=== PATIENT | female | born 1960 | race Caucasian/White ===

== ENCOUNTER → 2024-04-17 15:46 | Outpatient (REF) | payer OTHER, SELFPAY | LOC: HWRCS 15:46 | PROVIDERS: ATTENDING PHYSICIAN Internal Medicine Cardiovascular Disease; FAMILY PHYSICIAN Family Medicine | DX: I34.1 Nonrheumatic mitral (valve) prolapse (principal); I34.0 Nonrheumatic mitral (valve) insufficiency | CPT/HCPCS: 93306 ==

== ENCOUNTER → 2024-04-18 13:34 | Outpatient (REF) | payer OTHER, SELFPAY | LOC: HWWDC 13:34 | PROVIDERS: ATTENDING PHYSICIAN Obstetrics & Gynecology; FAMILY PHYSICIAN Family Medicine | DX: Z12.31 Encounter for screening mammogram for malignant neoplasm of breast (principal) | CPT/HCPCS: 77063; 77067 ==

== ENCOUNTER 2024-05-22 17:28 | Outpatient (RCR) | payer OTHER, SELFPAY | END 2024-05-22 23:59 | disposition home or self-care (01) | LOC: RPT 17:28 | PROVIDERS: ATTENDING PHYSICIAN Physician Assistant Surgical; FAMILY PHYSICIAN Family Medicine | DX: M25.511 Pain in right shoulder (principal); M54.2 Cervicalgia | CPT/HCPCS: 97110; 97161 ==

== ENCOUNTER 2025-07-30 10:57 | Emergency (ER) | payer OTHER, SELFPAY ==
[2025-07-30 11:04] VITALS: BP 159/81
[2025-07-30 11:35] LABS: Hematocrit 43.3 % (37.0-47.0); Hemoglobin 14.8 g/dL (12.0-16.0); Mean Corp Hgb Conc. 34.2 g/dL (33.0-37.0); Mean Corpuscular Volume 84.7 fL (81.0-99.0); Nucleated Red Blood Cells % 0 %; Platelet Count 205 10^3/uL (130-400); Red Cell Dist. Width 13.1 % (11.5-14.5)
[2025-07-30 11:53] LABS: ALT (SGPT) 17 U/L (0-35); AST (SGOT) 22 U/L (14-36); Albumin 4.5 g/dl (3.5-5.0); Alkaline Phosphatase 79 U/L (38-126); Blood Urea Nitrogen 15 mg/dl (7-17); Calcium 10.1 mg/dl (8.4-10.2); Carbon Dioxide 30 mmol/L (22-30); Chloride 104 mmol/L (98-107); Glucose 80 mg/dl (70-99); Potassium 3.8 mmol/L (3.5-5.1); Sodium 138 mmol/L (135-145); Total Protein 7.1 g/dl (6.3-8.2); eGFR > 60.00
[2025-07-30 12:32] VITALS: BP 134/67
--- NOTE | 2025-07-30 12:36 | EDRN ---
Pt added that she spoke to dry goods clerk Dr. Lance giles suggested pt get an MRI.
--- NOTE | 2025-07-30 12:43 | EDRN ---
Dr. Sanchez in room w /pt at this time.
--- NOTE | 2025-07-30 13:07 | ED.GENMED ---
History of Present Illness
General
Chief Complaint: Blood Pressure Problem
Source: patient
Exam Limitations: none
Time Seen by Provider: 07/30/25 12:40
History of Present Illness
History of Present Illness:
See MDM
Past History
Past History
ED Past Medical History: HTN, Hypothyroidism and Other (MVR)
ED Past Surgical History: Orthopedic
Social History
Tobacco: Non-smoker
Alcohol: None
Drug: None
Personal:
Living: with family
Phy Exam
Physical Exam
Physical Exam:
See MDM
Course
Orders/Labs/Results
Orders:
Orders
07/30/25 11:03
EKG [Electrocardiogram (*1)] Urgent
Reason for Study: Vertigo / Dizzy
07/30/25 11:04
EKG- Treatment ONCE
07/30/25 11:22
CBC/With Diff [Complete Blood Count/With Diff] Urgent
CMP [Comprehensive Metabolic Panel] Urgent
07/30/25 13:05
CT Head & Neck Angio W/wo IV Urgent
Comment:
Reason For Exam: intermittent dizziness and blurred vision
Abnormal Lab Results
07/30/25
11:22
Creatinine 0.5 L mg/dL
(0.6-1.0)
07/30/25 11:22
07/30/25 11:22
Vital Signs
Initial and Last Documented VS:
Initial Vital Signs
Temp Pulse Resp BP Pulse Ox
97.6 F 70 15 159/81 98
07/30/25 11:04 07/30/25 11:04 07/30/25 11:04 07/30/25 11:04 07/30/25 11:04
Last Documented Vital Signs
Temp Pulse Resp BP Pulse Ox
97.6 F 56 16 132/60 96
07/30/25 11:04 07/30/25 14:09 07/30/25 14:09 07/30/25 14:09 07/30/25 14:09
MDM/Problems Addressed
Differential Diagnosis Includes:
Note:
CHIEF COMPLAINT(S)
Visual disturbances and dizziness
HISTORY OF PRESENT ILLNESS
The patient is a 64-year-old female with a history of hypertension who presented with visual disturbances and dizziness. She reports experiencing a 'bizarre' feeling with visual disturbances, including blurring of vision, along with episodes of
light-headedness and dizziness, particularly upon standing. These symptoms have been occurring for a couple of weeks. She believes these symptoms are related to her blood pressure fluctuations and stopped her antihypertensive medication for a period
due to leading a healthier lifestyle. Her daughter is getting in two and a half weeks, increasing her concern about health stability. The patient reinitiated her blood pressure medication, lisinopril, at a dosage of 10 mg twice daily, and
recently increased it to 20 mg in the morning due to high blood pressure readings at night.
The patient consulted with her hat binder, Dr. Lance, who confirmed normal lab results aside from thyroid medication. Dr. Lance noted the patients family history of cardiac issues, including palpitations and atrial fibrillation in her
mother. There is a plan to monitor blood pressure routinely at home, with flexibility in dosing adjustments if blood pressure becomes too low during the day.
SOCIAL DETERMINANTS AFFECTING HEALTH
The patient is experiencing anxiety related to her daughters upcoming wedding.
MEDICATIONS
Lisinopril 10 mg twice daily, recently increased to a morning dose of 20 mg upon the patients decision.
REVIEW OF SYSTEMS
- Neurological: Reports dizziness and light-headedness, especially upon standing.
- Visual: Reports blackening and blurring of vision.
PHYSICAL EXAM
General: Alert, no acute distress.
Skin: Warm, dry.
Head: Normocephalic, atraumatic
Neck: Appears supple, trachea midline.
Eyes, Ears, Nose, Mouth, and Throat: Oral mucosa moist. No visual field deficits
Cardiovascular: No signs of cyanosis. Regular rate and rhythm
Respiratory: Respirations are non-labored. Lungs clear
Abdomen: Non-distended
Musculoskeletal: No deformities
Neurological: No focal neurological deficit observed. Moving all 4 extremities appropriately
Psychiatric: Cooperative, appropriate mood and affect.
PROBLEM LIST
Acute:
- Visual disturbances
- Dizziness
Chronic:
- Hypertension
PLAN
- Continue monitoring blood pressure at home regularly.
- Adjust lisinopril dosing as needed based on home blood pressure readings, with attention to potential for hypotension during midday.
- Follow up with Dr. Lance as needed regarding blood pressure management and medication adjustments.
- Obtain CT angiogram head and neck to evaluate carotids and concern for possible rolling TIAs.
DIFFERENTIAL DIAGNOSIS
The Differential Diagnosis includes, in no particular order and is not limited to:
- Orthostatic hypotension
- Hypertensive urgency
- Transient ischemic attack
- Visual migraines
- Anemia
- Medication-induced side effects
- Cardiac arrhythmia
- Vestibular dysfunction
- Thyroid dysfunction
- Anxiety-induced symptoms
EKG
My independent EKG interpretation is:
- Rhythm: Normal sinus rhythm
- Heart rate: 68 beats per minute
- [place]: Normal axis
- ST segment: No ST elevation or depression
SUMMARY OF ENCOUNTER
The patient was seen in the emergency department for visual disturbances and dizziness. A CT angiogram was performed, showing no carotid stenosis. The scan incidentally noted a meningioma, of which the patient was already aware. Blood pressure
monitoring showed stability. Discussions were held regarding outpatient follow-up for her brain MRI and blood pressure management.
DISPOSITION
Discharge
ASSESSMENT
The patient was assessed to be stable with no acute issues requiring hospital admission. Her dizziness and visual disturbances were not linked to carotid stenosis. The patients known meningioma is not causing acute symptoms currently.
PLAN
- Arrange outpatient follow-up with primary care for further management and monitoring.
- Follow up with a hat binder for ongoing blood pressure management.
- Plan for an outpatient brain MRI to assess the meningioma further.
INDEPENDENT REVIEW OF LABS AND INTERPRETATION OF TESTS
- My independent interpretation of the CT angiogram shows negative results for carotid stenosis and an incidental finding of a meningioma.
MEDICAL DECISION MAKING
- Number and Complexity of Problems Addressed: Chronic conditions affecting care include hypertension and known meningioma. Differential diagnosis considerations: orthostatic hypotension, hypertensive urgency, visual migraines, and anxiety-induced
symptoms.
- Data:
- Category 1: My independent interpretation of the CT angiogram.
- Category 3: Current management discussed with the patient regarding outpatient follow-up with primary care, brain MRI planning, and continuing cardiology consultation for blood pressure control.
-Risk: Prescription drug management of hypertension will continue under careful monitoring by the hat binder. The patient is considered safe for discharge, with outpatient management being deemed appropriate due to stable vital signs and patient
agreement.
DIAGNOSIS
- Visual disturbances, unspecified (ICD-10: H53.8)
- Dizziness and giddiness (ICD-10: R42)
- Hypertension, unspecified, controlled on current treatment (ICD-10: I10)
*Pulse Oximetry
SaO2: 97
Oxygen Mode of Delivery: Room air
Patient hypoxic: no
*Critical Care Note
Total Time (30-74mins, 75-104mins- exclusive of procedures): Not Applicable
ED Attending Note
-
Portions of this chart may have been created with voice recognition software.� Occasional wrong word or��sound alike� substitutions may have occurred due to the inherent limitations of voice recognition software.
Discharge Plan
Departure
Patient Disposition: Home (Routine Discharge)
Date of Disposition: 07/30/25
Time of Disposition: 15:15
Patient with high blood pressure during this ER visit?: Yes
Discharge Problem:
HTN (hypertension)
Instructions: BLOOD PRESSURE
Prescriptions:
No Action
levothyroxine 88 MCG tablet
88 mcg PO DAILY
Lisinopril
10 mg PO BID
Referrals:
Karin Gambino MD [Family Provider, Family Practice]
Activity Restrictions/Additional Instructions:
Please return for any worsening symptoms.
You may return at any time if you have further concerns.
Please follow up with your doctor at the first available appointment, preferably this week. Please discuss obtaining an MRI of your brain.
Please continue to talk to your hat binder in regards to your blood pressure control.
Thank you for choosing [facility].
Interventions
Interventions:
*Risk Screen - Suicide Last Done: 07/30/25 11:04
*General Assessment Last Done: 07/30/25 11:04
*Neglect/Abuse Screening Last Done: 07/30/25 11:04
*ED- Fall Risk Assessment Last Done: 07/30/25 12:32
*ED COVID-19 Vaccine History Last Done: 07/30/25 11:04
ED- Cardiac Assessment Last Done: 07/30/25 12:32
ED- Neurological Assessment Last Done: 07/30/25 12:32
ED- Pulmonary Assessment Last Done: 07/30/25 12:32
Discharge Date and Time
Print Language: FRENCH
[2025-07-30 14:09] VITALS: BP 132/60
== END 2025-07-30 15:36 | disposition home or self-care (01) ==
LOC: EMR 10:57
PROVIDERS: Emergency Medicine; EMERGENCY PHYSICIAN Student in an Organized Health Care Education/Training Program; FAMILY PHYSICIAN Family Medicine
DX: I10 Essential (primary) hypertension (principal); E03.9 Hypothyroidism, unspecified; R42 Dizziness and giddiness; H53.9 Unspecified visual disturbance; D32.0 Benign neoplasm of cerebral meninges
CPT/HCPCS: 99284; 70496; 70498; 80053; 85025; 93005; Q9967

== ENCOUNTER → 2025-10-08 17:38 | Outpatient (REF) | payer OTHER, SELFPAY | LOC: MRI 3T 17:38 | PROVIDERS: ATTENDING PHYSICIAN Family Medicine | DX: D16.9 Benign neoplasm of bone and articular cartilage, unspecified (principal); R42 Dizziness and giddiness; H53.9 Unspecified visual disturbance | CPT/HCPCS: 70553; A9575 ==

== ENCOUNTER 2025-10-23 10:41 | Emergency (ER) | payer OTHER, SELFPAY ==
[2025-10-23 10:45] VITALS: BP 160/81
--- NOTE | 2025-10-23 12:17 | ED.GENMED ---
History of Present Illness
General
Chief Complaint: Skin Surface Trauma
Source: patient
Exam Limitations: none
Time Seen by Provider: 10/23/25 11:16
Nursing documentation reviewed up to this point in time: agreed with
History of Present Illness
History of Present Illness:
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 Denies any loss of
consciousness any changes in vision or additional concerns. Last tetanus shot was 7 years ago.
Past History
Past History
ED Past Medical History: HTN, Hypothyroidism and Other (MVR)
ED Past Surgical History: Orthopedic
Social History
Tobacco: Non-smoker
Alcohol: None
Drug: None
Personal:
Living: with family
Review of Systems
Review of Systems
Allergies reviewed?: Yes
All Other Systems: ROS reviewed and negative except as documented in HPI and ROS
Phy Exam
Physical Exam
Physical Exam:
GENERAL: Alert , in no apparent distress
EYE: pupils equal and reactive
NECK: Supple, no significant adenopathy.
ENT: 3 cm laceration to the left lateral eyebrow region. No foreign bodies o/p clr, mmm.
CARDIAC: Regular rate and rhythm .
LUNGS: Clear breath sounds bilaterally, no acute respiratory distress, no wheezes/rales/rhonchi
ABDOMEN: Soft, without focal tenderness, no r/g, no cvat
NEUROLOGICAL: Alert and oriented, no focal neuro deficits
SKIN: Warm and dry, skin intact.
MUSCULOSKELETAL: No edema, well perfused.
PSYCH: Normal and appropriate interaction.
Course
Orders/Labs/Results
Orders:
Orders
10/23/25 11:55
Tetanus/Diphth/Acelpertussis [Adacel] 0.5 ml IM .ONCE ONE
Vital Signs
Initial and Last Documented VS:
Initial Vital Signs
Temp Pulse Resp BP Pulse Ox
97.7 F 74 18 160/81 99
10/23/25 10:45 10/23/25 10:45 10/23/25 10:45 10/23/25 10:45 10/23/25 10:45
Last Documented Vital Signs
Temp Pulse Resp BP Pulse Ox
97.7 F 74 18 160/81 99
10/23/25 10:45 10/23/25 10:45 10/23/25 10:45 10/23/25 10:45 10/23/25 12:18
Procedures
Laceration Closure
Left Inferior Lateral Eye brow:
Status of Wound: clean
Size of Wound in cm: 3
Description of Wound Edges: sharp
Preparation: cleaned with saline
Anesthesia: 1% Lidocaine with epi
Revision/Debridement: routine- no revision and irrigate-direct pressure
Wound exploration: explored to base- no FB and no tendon involvement
Type of Closure: single layer closure and interrupted sutures
Skin Closure Material: 6-0 nylon
Number of sutures: 5
MDM/Problems Addressed
MDM/Problems Addressed:
65-year-old female presenting to the emergency department today with concerns of a laceration to her left eyebrow from a [place] decoration prior to arrival. No loss of consciousness. Not on blood thinners. No eye involvement. This was cleaned
thoroughly and closed with 5 stitches. Advised for return in 5 to 7 days for suture removal. Additionally given an updated tetanus shot. Return precautions given.
*Pulse Oximetry
SaO2: 99
Oxygen Mode of Delivery: Room air
Patient hypoxic: no (99)
*Critical Care Note
Total Time (30-74mins, 75-104mins- exclusive of procedures): Not Applicable
ED Attending Note
-
Portions of this chart may have been created with voice recognition software.� Occasional wrong word or��sound alike� substitutions may have occurred due to the inherent limitations of voice recognition software.
Discharge Plan
Departure
Patient Disposition: Home (Routine Discharge)
Date of Disposition: 10/23/25
Time of Disposition: 12:17
Patient with high blood pressure during this ER visit?: No
Condition: Good
Covid-19: Not Applicable
Discharge Problem:
Laceration of eyebrow
Instructions: Laceration Repair With Stitches (DC)
Prescriptions:
No Action
levothyroxine 88 MCG tablet
88 mcg PO DAILY
Lisinopril
10 mg PO BID
Referrals:
Karin Gambino MD [Family Provider, [facility]]
Activity Restrictions/Additional Instructions:
You came to the emergency department today with concerns of a laceration to your eyebrow. This was cleaned and closed with 5 total stitches. Please have this removed in 5 to 7 days. Return for any worsening, new or concerning symptoms.
Interventions
Interventions:
ED-Skin Assessment Last Done: 10/23/25 11:25
Discharge Date and Time
Print Language: ITALIAN
[2025-10-23] MEDS: ADACEL 0.5 ML IM (12:25)
== END 2025-10-23 12:48 | disposition home or self-care (01) ==
LOC: EMR 10:41
PROVIDERS: EMERGENCY PHYSICIAN Student in an Organized Health Care Education/Training Program; FAMILY PHYSICIAN Family Medicine
DX: S01.112A Laceration without foreign body of left eyelid and periocular area, initial encounter (principal); W26.8XXA Contact with other sharp object(s), not elsewhere classified, initial encounter; Y93.E9 Activity, other interior property and clothing maintenance; I10 Essential (primary) hypertension; E03.9 Hypothyroidism, unspecified; Z23 Encounter for immunization
CPT/HCPCS: 99282; 12013; 90471; 90715